=== PATIENT | female | born 1990 | race Caucasian/White ===

== ENCOUNTER 2020-07-06 01:17 | Inpatient (IN) | payer OTHER ==
[~2020-07-06] VITALS: Ht 167.6 cm; Wt 74.4 kg
[2020-07-06 00:16] VITALS: BP 123/79
[~2020-07-06 01:17] MED LIST: CITRIC ACID/SODIUM CITRATE 30 ML SOLUTION UDCUP PO PRN; METHYLERGONOVINE MALEATE 0.2 MG/ML VIAL IM PRN; METOCLOPRAMIDE HCL 5 MG/ML 2 ML VIAL IVP PRN; OXYTOCIN 30 UNITS/LACT RINGERS 500 ML IV ONE; OXYTOCIN 30 UNITS/LACT RINGERS 500 ML IV PRN; RINGERS SOLUTION,LACTATED 1,000 ML IV ONE; RINGERS SOLUTION,LACTATED 1,000 ML IV PRN
[2020-07-06] MEDS ORDERED: PREN-217 PO (01:22)
[2020-07-06] MEDS ORDERED: CALC-1038 PO (01:22)
[2020-07-06] MEDS ORDERED: FERR-82 PO (01:22)
[2020-07-06] MEDS ORDERED: INFLUENZA VIRUS VACCINE QVS 2020-21 (6MO+)/PF 60 MCG/0.5 ML SYRINGE IM ONE (01:30)
[2020-07-06] MEDS: RINGERS SOLUTION,LACTATED 1,000 ML IV SCH ×2 (01:34→08:53)
[2020-07-06 02:02] LABS: COVID AG,FIA SOURCE NASOPHARYNGEAL
[2020-07-06 02:06] LABS: BASOPHILS % (AUTO) 0.3 % (0.0-2.0); EOSINOPHILS % (AUTO) 0.5 % (1.0-6.0); HEMATOCRIT 40.1 % (36-46); HEMOGLOBIN 13.4 g/dL (12.0-16.0); LYMPHOCYTES # (AUTO) 1.9 K/uL (1.0-4.8); LYMPHOCYTES % (AUTO) 18.8 % (22.0-44.0); MEAN CORPUSCULAR HEMOGLOBIN 31.6 pg (26.0-34.0); MEAN CORPUSCULAR HGB CONC 33.4 G/dL (31.0-37.0); MEAN CORPUSCULAR VOLUME 95 fL (80-100); MONOCYTES # (AUTO) 0.9 K/uL (0.1-1.0); MONOCYTES % (AUTO) 9.1 % (2.0-9.0); NEUTROPHILS # (AUTO) 7.2 K/uL (1.8-7.7); NEUTROPHILS % (AUTO) 71.3 % (40.0-70.0); PLATELET COUNT (AUTO) 171 K/uL (150-450); RED BLOOD CELL COUNT(AUTO) 4.23 MIL/uL (4.00-5.20); RED CELL DISTRIBUTION WIDTH 13.4 % (11.5-14.5)
[2020-07-06] MEDS ORDERED: OXYGEN THERAPY IH SCH (08:00)
[2020-07-06] MEDS: FentaNYL CITRATE PF 100 MCG/2 ML VIAL IVP PRN ×3 (08:03→11:31)
[2020-07-06] MEDS ORDERED: BUPIVACAINE HCL/PF 0.25% 10 ML VIAL ONE (12:41)
[2020-07-06] MEDS ORDERED: ROPIVACAINE HCL/PF 0.2% 100 ML ED ONE (12:41)
[2020-07-06] MEDS ORDERED: ROPIVACAINE HCL/PF 0.2% 100 ML ED PRN (13:00)
[2020-07-06] MEDS ORDERED: NALBUPHINE HCL 10 MG/ML VIAL IVP PRN (13:00)
[2020-07-06] MEDS ORDERED: ONDANSETRON HCL 4 MG/2 ML VIAL IVP PRN (13:00)
[2020-07-06] MEDS ORDERED: DiphenhydrAMINE HCL 50 MG/ML VIAL IVP PRN (13:00)
[2020-07-06] MEDS ORDERED: AMPICILLIN SODIUM 2 GM/NS 100 ML IV ONE (17:00)
[2020-07-06] MEDS ORDERED: RINGERS SOLUTION,LACTATED 1,000 ML IV ONE (20:15)
[2020-07-06] MEDS ORDERED: BENZOCAINE 20%/MENTHOL 56 GM SPRAY CANISTER TP PRN (20:15)
[2020-07-06] MEDS ORDERED: OxyCODONE HCL/ACETAMINOPHEN 5-325 MG TABLET PO PRN ×2 (20:15)
[2020-07-06] MEDS ORDERED: MEASLES/MUMPS/RUBELLA VACCINE, LIVE 0.5 ML/VIAL SQ ONE (20:15)
[2020-07-06] MEDS ORDERED: GLYCERIN/WITCH HAZEL LEAF 40 PADS JAR TP PRN (20:15)
[2020-07-06] MEDS ORDERED: LANOLIN 7 GM OINTMENT TP PRN (20:15)
[2020-07-06] MEDS: MAGNESIUM HYDROXIDE SUSPENSION 30 ML UDCUP PO SCH (20:57)
[2020-07-06] MEDS: IBUPROFEN 600 MG TABLET PO PRN (20:58)
[2020-07-06] MEDS ORDERED: AMPICILLIN SODIUM 1 GM/NS 50 ML IV SCH (21:00)
[2020-07-07] MEDS: IBUPROFEN 600 MG TABLET PO PRN ×3 (03:04→14:59)
[2020-07-07] MEDS: MAGNESIUM HYDROXIDE SUSPENSION 30 ML UDCUP PO SCH (10:55)
[2020-07-07] MEDS ORDERED: IBUP-2071 PO (11:26)
[2020-07-07] MEDS ORDERED: DOCU-275 PO ×2 (11:27)
== END 2020-07-07 19:45 | disposition home or self-care (01) | DRG 807 ==
LOC: 4S 01:17 → OBSVTOIN 01:17
PROVIDERS: ADMIT Obstetrics & Gynecology; ATTEND Obstetrics & Gynecology
PROC: 10E0XZZ Delivery of Products of Conception, External Approach (ICD-10-PCS; principal; 2020-07-06)
PROC: 0KQM0ZZ Repair Perineum Muscle, Open Approach (ICD-10-PCS; 2020-07-06)
PROC: 3E0R3BZ Introduction of Anesthetic Agent into Spinal Canal, Percutaneous Approach (ICD-10-PCS; 2020-07-06)
PROC: 00HU33Z Insertion of Infusion Device into Spinal Canal, Percutaneous Approach (ICD-10-PCS; 2020-07-06)
PROC: 3E0234Z Introduction of Serum, Toxoid and Vaccine into Muscle, Percutaneous Approach (ICD-10-PCS; 2020-07-06)
DX: O76 Abnormality in fetal heart rate and rhythm complicating labor and delivery (principal); Z37.0 Single live birth; O77.0 Labor and delivery complicated by meconium in amniotic fluid; O70.1 Second degree perineal laceration during delivery; Z3A.39 39 weeks gestation of pregnancy; Z20.822 Contact with and (suspected) exposure to COVID-19; Z23 Encounter for immunization
CPT/HCPCS: 86850; 86900; 86901; 87426; 90686; 90707; J0290; J2590; J2795; J3010; J3490; J7120